=== PATIENT | female | born 1955 | race Caucasian/White ===

== ENCOUNTER 2017-09-27 11:51 | Emergency (ER) | payer OTHER ==
[~2017-09-27] VITALS: Ht 160 cm; Wt 65.4 kg
[~2017-09-27 11:51] MED LIST: AUGMENTIN875 MG PO; BENADRYL25 MG PO; CINNAMON500 MG PO; CRANBERRY TABL1 EACH PO; METAMUCIL0.52 GM PO; MIRALAX255 GM PO; OPTIVAR 0.120 DROP/6 BOTH EYES; PREDNISONE10 MG PO; PROTONIX40 MG PO; RESTASIS 01 DROP/0.4 BOTH EYES; SIMVASTATIN20 MG PO; SINGULAIR10 MG PO; SYMBICORT60 INHALAT IH; SYSTANE BALANCE10 ML BOTH EYES; TYLENOL EXTRA500 MG PO; VITAMIN D2000 INTUN PO; ZYVOX600 MG PO
[2017-09-27 14:44] VITALS: BP 152/75
== END 2017-09-27 14:45 | disposition home or self-care (01) ==
LOC: EME 11:51
DX: S93.401A Sprain of unspecified ligament of right ankle, initial encounter (principal); S90.31XA Contusion of right foot, initial encounter; W22.8XXA Striking against or struck by other objects, initial encounter; V00.812A Wheelchair (powered) colliding with stationary object, initial encounter; J45.909 Unspecified asthma, uncomplicated
CPT/HCPCS: 73630; 99281; 99283